=== PATIENT | female | born 1950 | race Caucasian/White ===

== ENCOUNTER 2019-02-03 09:45 | Day surgery (SDC) | payer OTHER ==
[2019-02-03] MEDS ORDERED: PROPOFOL 20 ML (11:07)
== END 2019-02-03 15:28 | disposition home or self-care (01) ==
LOC: GIL 09:45
DX: Z12.11 Encounter for screening for malignant neoplasm of colon (principal); D12.5 Benign neoplasm of sigmoid colon; D12.3 Benign neoplasm of transverse colon; I10 Essential (primary) hypertension; E78.5 Hyperlipidemia, unspecified; E03.9 Hypothyroidism, unspecified
CPT/HCPCS: 45385; 82962; 88305